=== PATIENT | female | born 1985 | race Caucasian/White ===

== ENCOUNTER → 2019-09-30 11:09 | Outpatient (CLI) | payer BC, SELFPAY ==
--- NOTE | ~2019-09-30 | US_ITS ---
EXAMINATION: US OB >= 14 weeks Fetus DATE: 09/30/2019 12:04 INDICATION: Second trimester anatomic survey TECHNIQUE: Real-time ultrasound of the pelvis was performed. COMPARISON: None. FINDINGS: There is a single living fetus in breech presentation. The placenta is anterior and 1.3 cm from the i nternal cervical os. heart rate is 158 beats per minute (bpm). cardiac activity and feta l movement are noted. The amniotic fluid index is subjectively normal. The following anatomy was identified as normal: 4 chamber heart appears normal, ventricular outflow tracts not well demonstrated 3 vessel cord cord insertion kidneys urinary bladder stomach spine diaphragm ventricles cisterna magna cerebellum The following biometric data were obtained: Biparietal diameter (BPD): 3.4 cm; head circumference (HC): 12.5 cm; abdominal circumference (AC): 10 .8 cm; femur length (FL): 2.2 cm. These measurements are concordant. Estimated weight is 168 g +/- 25 g, which correlates with the <3rd percentile when 02/27/2020 i s used as estimated date of delivery. As single measurements, these parameters are each equal to the following estimated gestational ages w ith ranges of +/- 2 standard deviations: BPD: 16 weeks 4 days ( 15 weeks 3 days - 17 weeks 5 days). HC: 16 weeks 3 days ( 15 weeks 1 days - 17 weeks 4 days). AC: 16 weeks 5 days ( 15 weeks 1 days - 18 weeks 3 days). FL: 16 weeks 6 days ( 15 weeks 3 days - 18 weeks 2 days). estimated gestational age based solely on measurements from this exam is 16 weeks 5 days +/- 1 weeks 1 days. IMPRESSION: 1. Single living fetus in variable presentation. 2. Estimated weight is 168 g +/- 25 g, which correlates with the <3rd percentile when 0 is used as estimated date of delivery. 3. Low-lying placenta. 4. Ventricular outflow tracts of the heart not well demonstrated. Reviewed, dictated and finalized at location A. IMPRESSION: 1. Single living fetus in variable presentation. 2. Estimated weight is 168 g +/- 25 g, which correlates with the <3rd per centile when 02/27/2020 is used as estimated date of delivery. 3. Low-lying placenta. 4. Ventricular outflow tracts of the heart not well demonstrated.
== END ==
PROVIDERS: PCP Family Medicine; Visit Provider Obstetrics & Gynecology
DX: Z34.92 Encounter for supervision of normal pregnancy, unspecified, second trimester (principal); O44.42 Low lying placenta NOS or without hemorrhage, second trimester
CPT/HCPCS: 76805

== ENCOUNTER → 2019-10-18 11:02 | Outpatient (CLI) | payer BC, SELFPAY ==
--- NOTE | ~2019-10-18 | US_ITS ---
US OB limited 10/18/2019 11:34 Indication: Follow-up low lying placenta. Procedure: High-resolution Limited obstetrical ultrasound Comparison: 09/30/2019 Findings: There is a single living intrauterine in breech presentation. Placenta is anterio r measuring 6.9 cm to the cervix. No evidence for previa. Amniotic fluid is subjectively normal. Feta l heart rate is 157 BPM. Limited survey demonstrates normal ventricular outflow tracts. Impression: 1: Single living intrauterine in breech presentation. 2: Anterior placenta without evidence for previa. 3: Normal ventricular outflow tracts. Reviewed, dictated and finalized at location B. Impression: 1: Single living intrauterine in breech presentation. 2: Anterior placenta without evidence for previa. 3: Normal ventricular outflow tracts.
== END ==
PROVIDERS: Visit Provider Obstetrics & Gynecology
DX: O44.10 Complete placenta previa with hemorrhage, unspecified trimester (principal); Z3A.00 Weeks of gestation of pregnancy not specified
CPT/HCPCS: 76815

== ENCOUNTER 2020-03-05 10:49 | Inpatient (IN) | payer BC, OTHER, SELFPAY ==
[2020-03-05] VITALS (89 sets, daily range): BP systolic 71–116; BP diastolic 36–94; PULSE 25–138; RESP 16; TEMP 36.4–37.2; O2SAT 77–100; BMI 30.1
[2020-03-05 12:49] LABS: Basophils Percent Auto 0.2 % (0.2-1.2); Eosinophils Absolute Auto 0.1 K/mm3 (0-0.3); Eosinophils Percent Auto 1.4 % (0-4.4); Hemoglobin 11.2 g/dL (12.0-15.0); Immature Granulocyte Absolute 0.07 K/mm3 (0.00-0.031); Immature Granulocyte Percent A 0.8 % (0-0.5); Lymphocytes Absolute Auto 1.67 K/mm3 (0.9-3.2); Mean Corpuscular Hemoglobin 30.6 pg (26-34); Mean Corpuscular Volume 87.4 fl (80-100); Mean Platelet Volume 9.8 fl (7.4-10.4); Monocytes Absolute Auto 0.6 K/mm3 (0.1-0.6); Monocytes Percent Auto 7.1 % (2.6-8.5); Neutrophils Absolute Auto 6.3 K/mm3 (1.3-6.7); Neutrophils Percent Auto 71.5 % (45.5-73.1); Platelet Count Result 178 k/mm3 (150-375); Red Blood Count 3.66 M/mm3 (4.2-5.4); Red Cell Distribution Width 12.6 % (11.5-14.5); White Blood Count 8.8 K/mm3 (4.5-10.0)
[2020-03-05] MEDS: OXYTOCIN 30 UNITS/NS 500 ML 30 UNITS/500 ML BAG IV CONT (13:00)
[2020-03-05] MEDS: LACTATED RINGERS 1,000 ML 125 ML IV CONT ×2 (13:00→15:06)
--- NOTE | 2020-03-05 13:00 | LDADM ---
This patient, Lily Jackson, was admitted to Labor/Delivery/Recovery 106 on 03/05/20 at 10:49. Plans for labor, pain management and were discussed with patient. Patient/family oriented to hospital policies and general routines including ID bracelet, bed and alarms, visiting hours, pain management, procedures, bathroom and other care routines, personal items, smoking policy, room service/diet and guest tray routines, infant security routines, and visiting hours. Patient/Family are encouraged to report perceived risks to care and to ask questions if they do not understand what they are told or what they should do. See OBIX for further documentation.
--- NOTE | 2020-03-05 13:21 | WPDOBADMIT ---
Obstetrics - Admit Note Admission Note: record reviewed. No pertinent additions to the history and/or any subsequent changes in the physical findings that are not consistent with the expected course of the were found. Additions to the history and/or subsequent changes in the physical findings follow. None.Here suspecting SROM but membranes intact. Was to have MIL in am tomorrow but decided to stay today for MIL. Cervix 3-4/50/-2 AROM with clear fluid. FHTs reactive.
--- NOTE | 2020-03-05 14:32 | WPDANESEPP ---
Anes - Eval Pre Procedure Procedure: labor epidural Date/Time: 03/05/20 14:32 Preop Diagnosis: labor pain Pre Op Diagnosis: Induction of Labor Patient Data Age: 34 Gender: F Height: 5 ft 7 in Weight: 87.3 kg Last Vital Signs Temp 36.7 C 03/05/20 14:01 Pulse 70 03/05/20 14:31 BP 113/78 03/05/20 14:31 Allergies Allergy/AdvReac Type Severity Reaction Status Date / Time No Known Allergies Allergy Verified 03/05/20 13:21 Home Medications Medication Instructions Recorded Confirmed Type PNV cmb#95-ferrous fumarate-FA 1 tablet PO DAILY 02/17/20 03/05/20 History [] ergocalciferol (vitamin D2) 1,250 mcg PO WEEKLY 02/17/20 03/05/20 History [Vitamin D2] Laboratory Tests 03/05/20 03/05/20 03/05/20 12:42 12:42 12:42 WBC 8.8 K/mm3 K/mm3 (4.5-10.0) RBC 3.66 M/mm3 L M/mm3 (4.2-5.4) Hgb 11.2 g/dL L g/dL (12.0-15.0) Hct 32.0 % L % (37.0-47.0) MCV 87.4 fl fl (80-100) MCH 30.6 pg pg (26-34) MCHC 35.0 g/dl g/dl (32-36) RDW 12.6 % % (11.5-14.5) Plt Count 178 k/mm3 k/mm3 (150-375) MPV 9.8 fl fl (7.4-10.4) Immature Gran % (Auto) 0.8 % H % (0-0.5) Neut % (Auto) 71.5 % % (45.5-73.1) Lymph % (Auto) 19.0 % % (18.3-44.2) [place] % (Auto) 7.1 % % (2.6-8.5) Eos % (Auto) 1.4 % % (0-4.4) Baso % (Auto) 0.2 % % (0.2-1.2) Lymph # (Auto) 1.67 K/mm3 K/mm3 (0.9-3.2) [place] # (Auto) 0.6 K/mm3 K/mm3 (0.1-0.6) Eos # (Auto) 0.1 K/mm3 K/mm3 (0-0.3) Baso # (Auto) 0.0 K/mm3 K/mm3 (0.0-0.1) Abs Immat Gran (auto) 0.07 K/mm3 H K/mm3 (0.00-0.031) Absolute Neuts (auto) 6.3 K/mm3 K/mm3 (1.3-6.7) Absolute Nucleated RBC 0.0 K/mm3 K/mm3 (0.0-0.012) Nucleated RBC % 0.0 % % (0.0-0.2) RPR Pending Blood Type A Positive Antibody Screen Negative Patient hx anesthesia problems: other (itching ) Family hx anesthesia problems: none PMFSH Past Medical History Medical History Calculus of kidney Family History Family History (Updated 03/05/20 @ 13:41 by Porsche Jimenez RN) Son Febrile seizures Mother Cerebrovascular accident Family history of cardiovascular disease Myocardial infarct Depression Family history of glaucoma Family history of hypercholesterolemia Family history of kidney disease Family history of malignant neoplasm of breast Grandparent Diabetes mellitus Other Carcinoma of colon Hypertension Social History Social History Smoking status: Never smoker Second hand tobacco smoke exposure: Yes ( smokes) Alcohol intake: never Substance use: never Gender identity (if verbalized by the patient): Female Spiritual care concerns: No Exam Day of Procedure 03/05/20 14:32
--- NOTE | 2020-03-05 18:16 | P.PCNOB_ITS ---
OB - Delivery Note Procedure Delivery date: 03/05/20 events: Labor Induction Intrapartal events: None Induction method: AROM and per pitocin protocol Delivery monitor: external FHT and external uterine Route of delivery: Laceration Description: Periurethral Delivery repair: vicryl (3-0) Specimen: Yes (placenta) Quantitative Blood Loss: 112 Anesthesia type: Epidural Disposition: floor [place] Baby Date of : 03/05/20 Weeks of gestation at delivery: 39 gender: Female presentation: vertex position: Right Occiput Anterior Placenta delivery description: Spontaneous cord vessel description: 3 Vessels score one minute: 9 score five minutes: 9
--- NOTE | 2020-03-05 18:17 | PM.OBDSVD ---
DS: Admitting Diagnosis Admitting Diagnosis Admitting Diagnosis: Induction of Labor IUP 39 wks DS: Discharge Diagnosis Discharge Diagnosis (1) 39 weeks gestation of : Code(s): Z3A.39 - 39 weeks gestation of Status: Acute (2) (normal spontaneous vaginal delivery): Code(s): O80 - Encounter for full-term uncomplicated delivery Status: Acute OB - DS: Summary OB Procedures : Ultrasound OB Procedures Intrapartum: Spontaneous Vag Delivery OB Procedures: : None Peripartum Data Delivery Method: Natural Vaginal Laceration Description: Periurethral complications: none Status at Discharge Functional status at discharge: independent ambulation Overall status at discharge: patient is progressing back to baseline Time Spent with Patient Time attestation: Total time spent providing and/or coordinating discharge services: DS: Data Data Completed and Pending Labs on day of discharge: Labs from last 24 hours 03/05/20 03/05/20 03/05/20 12:42 12:42 12:42 WBC 8.8 RBC 3.66 L Hgb 11.2 L Hct 32.0 L MCV 87.4 MCH 30.6 MCHC 35.0 RDW 12.6 Plt Count 178 MPV 9.8 Immature Gran % (Auto) 0.8 H Neut % (Auto) 71.5 Lymph % (Auto) 19.0 [place] % (Auto) 7.1 Eos % (Auto) 1.4 Baso % (Auto) 0.2 Lymph # (Auto) 1.67 [place] # (Auto) 0.6 Eos # (Auto) 0.1 Baso # (Auto) 0.0 Abs Immat Gran (auto) 0.07 H Absolute Neuts (auto) 6.3 Absolute Nucleated RBC 0.0 Nucleated RBC % 0.0 RPR Pending Blood Type A Positive Antibody Screen Negative Discharge Plan Discharge Attending physician on discharge: Khalida Layne Discharging Clinician: Khalida Layne Anticipated Discharge Date/Time: 03/07/20 07:18 Patient Disposition: Home, Self-Care Activity: may shower and pelvic rest Diet: regular Patient Instructions: Antibiotic Form Stand Alone Forms: General Discharge Information Follow-up/Referrals: Khalida Layne MD [Physician] - 6 Weeks Discharge Medications: New norethindrone (contraceptive) 0.35 mg tablet 0.35 mg PO DAILY Qty: 84 RF: 3 Continued ergocalciferol (vitamin D2) [Vitamin D2] 1,250 mcg (50,000 unit) Capsule 1,250 mcg PO WEEKLY RF: 0 PNV cmb#95-ferrous fumarate-FA [] 28 mg iron- 800 mcg Tablet 1 tablet PO DAILY RF: 0 Date of admission: 03/05/20 10:49 Primary Care Provider: Rico Choi Admitting Provider: Benjamin Freeman Attending physician on admission: Benjamin Freeman Condition: Stable
[2020-03-05] MEDS: OXYTOCIN 30 UNITS/NS 500 ML 30 UNITS/500 ML BAG 125 UNITS IV CONT (18:29)
[2020-03-05] MEDS: WITCH HAZEL 40 PADS 1 PAD TOPICAL (20:24)
[2020-03-05] MEDS: BENZOCAINE 20% AER SPR (*SP) 56 GM CAN 1 SPRAY TOPICAL (20:24)
--- NOTE | 2020-03-05 20:35 | OBPPTRN ---
Patient transferred to post room #283 via wheelchair with in bassinet. Support person present. Oriented to unit, room, information board, rooming in, admission packet and security measures. Patient verbalizes understanding.
[2020-03-05 22:14] LABS: Rapid Plasma Reagin Non-Reactive (NonReactive)
[2020-03-06] MEDS: ACETAMINOPHEN 325 MG TABLET 650 MG PO ×2 (02:54→15:43)
[2020-03-06] MEDS: IBUPROFEN 600 MG TABLET PO ×2 (02:54→12:19)
[2020-03-06 04:53] LABS: Hematocrit 31.3 % (37.0-47.0); Hemoglobin 10.8 g/dL (12.0-15.0)
[2020-03-06 08:00] VITALS: BP 122/83; PULSE 62; RESP 18; TEMP 36.6
[2020-03-06] MEDS: DOCUSATE SODIUM 100 MG CAPSULE PO ×2 (08:13→15:43)
[2020-03-06] MEDS: MULTIVIT/MIN/PREN/FOL AC/IRON TABLET 1 TAB PO (08:13)
--- NOTE | 2020-03-06 08:24 | P.PNOB_ITS ---
OB - PN: Subj Subjective Date/time seen: 03/06/20 08:24 Patient comments: no complaints and pain well controlled baby status: doing well and nursing well OB - PN: Obj Data Labs CBC & Chem 7: 03/06/20 04:18 Labs: Laboratory Results - last 24 hr 03/05/20 03/05/20 03/05/20 12:42 12:42 12:42 WBC 8.8 RBC 3.66 L Hgb 11.2 L Hct 32.0 L MCV 87.4 MCH 30.6 MCHC 35.0 RDW 12.6 Plt Count 178 MPV 9.8 Immature Gran % (Auto) 0.8 H Neut % (Auto) 71.5 Lymph % (Auto) 19.0 [place] % (Auto) 7.1 Eos % (Auto) 1.4 Baso % (Auto) 0.2 Lymph # (Auto) 1.67 [place] # (Auto) 0.6 Eos # (Auto) 0.1 Baso # (Auto) 0.0 Abs Immat Gran (auto) 0.07 H Absolute Neuts (auto) 6.3 Absolute Nucleated RBC 0.0 Nucleated RBC % 0.0 RPR Non-reactive Blood Type A Positive Antibody Screen Negative 03/06/20 04:18 WBC RBC Hgb 10.8 L Hct 31.3 L MCV MCH MCHC RDW Plt Count MPV Immature Gran % (Auto) Neut % (Auto) Lymph % (Auto) [place] % (Auto) Eos % (Auto) Baso % (Auto) Lymph # (Auto) [place] # (Auto) Eos # (Auto) Baso # (Auto) Abs Immat Gran (auto) Absolute Neuts (auto) Absolute Nucleated RBC Nucleated RBC % RPR Blood Type Antibody Screen OB - PN A/P Plan day: 1 Plan: routine care, discharge home, follow up 6 weeks and other (oc's for bc) Time Spent With Patient Time: Total time spent is greater than 50% in coordination of care (as documented) at patient's floor/unit and/or counseling patient: Exam : Bimanual exam- vagina & uterus: other (Uterus firm, nt @U)
--- NOTE | 2020-03-06 11:00 | WPDANLDPN2 ---
Anes-Prog Note L&D Date/Time: 03/06/20 11:00 Comfortable throughout: labor and delivery Neuraxial method: epidural Epidural/Spinal procedure site: clean & non-tender Neuro status: Neuro function grossly intact. Cardiovascular status: normal Respiratory status: normal Airway patency: baseline Mental status: baseline Post-Op hydration status: normal Vital Signs: Last Vital Signs Temp 36.6 C 03/06/20 08:00 Pulse 62 03/06/20 08:00 Resp 18 03/06/20 08:00 BP 122/83 03/06/20 08:00 Pulse Ox 77 L 03/05/20 18:20 Pain score (VAS): 0 I/O: Intake & Output 03/05/20 03/06/20 03/06/20 23:59 07:59 15:59 Intake Total 500 Balance 500 Post-procedural complaints: none Patient feedback: Patient satisfied with anesthetic care.
[2020-03-06] MEDS: WITCH HAZEL 40 PADS 1 PAD TOPICAL (12:18)
[2020-03-06] MEDS: BENZOCAINE 20% AER SPR (*SP) 56 GM CAN 1 SPRAY TOPICAL (12:19)
--- NOTE | 2020-03-06 18:16 | PC.NURSE ---
Self care and infant care discharge instructions given including follow up visit date and time. Mother verbalized understanding. No questions or concerns voiced.
[2020-03-08 09:34] VITALS: BP 109/68; PULSE 92; RESP 20; TEMP 36.6; O2SAT 98
== END 2020-03-06 18:47 | disposition home or self-care (01) | DRG 807 ==
LOC: ANHLDR 03-08 09:19 → ANHOB2 03-08 09:19
PROVIDERS: Admitting Provider Obstetrics & Gynecology Gynecology; PCP Family Medicine; Visit Provider Obstetrics & Gynecology Gynecology
DX: O71.82 Other specified trauma to perineum and vulva (principal); Z37.0 Single live birth; Z3A.39 39 weeks gestation of pregnancy; Z86.19 Personal history of other infectious and parasitic diseases
CPT/HCPCS: 36415; 84112; 85014; 85018; 85025; 86592; 86850; 86900; 86901; 88307; A9270; J2590; J2795; J7120

== ENCOUNTER 2020-04-06 13:54 | Outpatient (RCR) | payer BC, OTHER, SELFPAY ==
--- NOTE | 2020-04-06 14:11 | PC.NURSE ---
IN 1300 OUT 1400 HISTORY: Pt. delivered at [facility] at 39/2 weeks. had no complications after delivery. Mother had no complications after delivery. Infant is now 4 weeks & 4 days old. Infant appears to be well cared for. Infant has been seen by ICP as scheduled. last seen by ICP on 03/17/2020. Has appt scheduled next on 04-14-2020. Mother reports: She would like to have the latch checked and would like to check the 's weight. Mother wishes: That the infant is gaining weight appropriately. Currently at 9-12 wets per day and 9-12 yellow seedy stools per day. weight: 7-6 lowest weight: 6-7 Last Weight: 7-6 (03-17-2020) Pre feeding weight: 3749 Post feeding weight: 3827 OBSERVATION: Mom puts baby to breast in cross cradle position. Independently latches to right breast with slightly shallow latch. Mom assisted to get a deeper latch. Mom states she does not have any pain but does feel the difference in the deeper latch. Mom burps baby and then then attaches infant to left breast with deep latch. Infant nurses eagerly on both breasts with frequent swallowing noted. Mom's nipples remain the same shape after feeding and she reports no pain. has large yellow seedy stool post feeding. PLAN: Mother will continue putting to breast every 2-3 hours or as often as desires. Mom will work to obtain deep latch when infant is on the breast. Mom will have next weight check at her appt next week. Mother will call with further questions or concerns.
== END 2020-05-18 08:31 | disposition home or self-care (01) ==
LOC: ANHOBOP 13:54
PROVIDERS: PCP Family Medicine; Visit Provider Pediatrics
DX: Z46.1 Encounter for fitting and adjustment of hearing aid (principal)
CPT/HCPCS: 99212; G0463

== ENCOUNTER 2020-04-14 08:41 | Outpatient (CLI) | payer OTHER, SELFPAY ==
--- NOTE | ~2020-04-14 | MR_ITS ---
EXAMINATION: MR ankle RT wo con DATE: 04/14/2020 09:51 INDICATION: Strain of muscle and tendon of peroneal muscle. Lateral posterior ankle pain for one year . TECHNIQUE: Magnetic resonance imaging (MRI) of the right ankle was performed without intravenous cont rast. Sequences included sagittal PD-weighted FS FSE, sagittal PD-weighted FSE, coronal PD-weighted F S FSE, coronal PD-weighted FSE, axial PD-weighted FS FSE, and axial PD-weighted FSE. COMPARISON: Right ankle radiographs 04/11/2020 FINDINGS: Medial ankle ligaments: There are changes of prior sprain of superficial component of the deltoid ligament characterized incr eased signal intensity. Deep component of the deltoid ligament is normal. Lateral ankle ligaments: There is an old ununited avulsion fracture of the inferior tip of the fibula. There are changes of pr ior sprains of anterior talofibular ligament and calcaneofibular ligament characterized increased sig nal intensity. There are changes of prior sprain of posterior talofibular ligament where there are so me disorganized fibers. The anterior and posterior tibiofibular ligaments are intact. Tendons: The anterior and medial ankle tendons are normal. Achilles tendon is normal. Peroneus longus tendon i s normal. There is a longitudinal split tear of peroneus brevis tendon. There is subcutaneous edema s uperficial to the peroneal tendons at the lateral malleolus. Plantar fascia: Normal. Bones/other: Bone alignment is normal. No acute fracture. The talar dome is normal. Fluid: There are small ankle and subtalar joint effusions. IMPRESSION: 1. 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 2. Changes of lateral ankle sprain. 3. Longitudinal split tear of peroneus brevis tendon. Reviewed, dictated and finalized at location A. RENCE INVESTIGATOR
== END 2020-04-14 08:42 | disposition home or self-care (01) ==
LOC: ANHIMG 08:43
PROVIDERS: PCP Family Medicine; Visit Provider Orthopaedic Surgery
DX: S86.311A Strain of muscle(s) and tendon(s) of peroneal muscle group at lower leg level, right leg, initial encounter (principal); S82.831K Other fracture of upper and lower end of right fibula, subsequent encounter for closed fracture with nonunion; S93.401A Sprain of unspecified ligament of right ankle, initial encounter; S96.811A Strain of other specified muscles and tendons at ankle and foot level, right foot, initial encounter
CPT/HCPCS: 73721

== ENCOUNTER 2021-12-03 14:50 | Outpatient (CLI) | payer BC, MEDICAID, SELFPAY ==
--- NOTE | ~2021-12-03 | US_ITS ---
EXAMINATION: US breast RT limited HISTORY: Palpable lump at the 12:00 location of the right breast near the nipple TECHNIQUE: Targeted right breast ultrasound was performed. FINDINGS: There is a 7 mm x 4 mm oval, circumscribed, parallel, hypoechoic mass with posterior acoust ic enhancement and no internal vascularity in the skin of the right breast at the nipple at the 12:00 location corresponding to the palpable abnormality of concern. Some some images appear to demonstrat e a tract to the skin surface. IMPRESSION: Findings consistent with a sebaceous cyst of the right breast corresponding to palpable abnormalities concern. Clinical follow-up is recommended. BI-RADS Category 2: Benign finding(s). Reviewed, dictated and finalized at location A.
== END 2021-12-03 14:51 | disposition home or self-care (01) ==
LOC: ANHIMG 15:00
PROVIDERS: PCP Family Medicine; Visit Provider Obstetrics & Gynecology Gynecology
DX: N63.10 Unspecified lump in the right breast, unspecified quadrant (principal)
CPT/HCPCS: 76642

== ENCOUNTER → 2021-12-31 15:34 | Outpatient (CLI) | payer BC, MEDICAID, SELFPAY ==
--- NOTE | ~2021-12-31 | MR_ITS ---
EXAMINATION: MR ankle RT wo con DATE: 12/31/2021 16:09 INDICATION: Right ankle pain TECHNIQUE: Magnetic resonance imaging (MRI) of the right ankle was performed without intravenous cont rast. Sequences included sagittal, coronal, and axial proton-density weighted fast spin echo without and with fat saturation. COMPARISON: None. FINDINGS: Bones/other: Chronic nonunited avulsion fracture fragment with corticated margins and without marrow edema at the distal tip of the lateral malleolus. The nondisplaced fragment includes the footplate of the calcaneo fibular ligament and portions of the anterior talofibular and talofibular ligaments. Bone marrow sign al is normal. Small ossicle along the posterior talus involving the footplate of the posterior talofi bular ligament which could represent either a developmentally unfused os trigonum or a chronic nonuni marybel avulsion fracture of the lateral tubercle of the posterior process of the talus. There is minimal associated marrow edema involving both the ossicle in the adjacent talus. No other fractures or path ologic marrow replacing process. Joint spaces appear relatively preserved with no focal cartilage def ects appreciated. Medial ankle ligaments: Deep and superficial deltoid ligaments as well as the spring ligament are normal. Lateral ankle ligaments: The anterior and posterior inferior tibiofibular ligaments are normal. The anterior talofibular and c alcaneofibular ligaments are normal. There is a tiny ganglion cyst along a longitudinal split tear at the fibular side of the posterior talofibular ligament situated between the portion of the ligament attachment both sides of the avulsion fracture. Tendons: Achilles tendon is normal. . Small amount of fluid signal surrounding the normal peroneus longus and brevis tendons consistent with mild tenosynovitis. The tibialis anterior and extensor hallucis longus and extensor digitorum longus tendons are normal. The tibialis posterior, flexor digitorum longus an d flexor hallucis longus tendons are normal. Plantar fascia: The plantar aponeurosis is normal. Fluid/other: Physiologic amount fluid in the joint spaces. 3 small loose osteochondral bodies, the largest measuri ng 6 mm in maximal diameter within a small ganglion cyst at the posterior medial aspect of the ankle situated between along the posterior margin of the tibial plafond between the flexor hallucis longus and flexor digitorum longus tendons. There is an additional small ganglion posterior to the ankle whi ch appears to arise more lateral to the flexor hallux longus tendon. Lisfranc ligament complex is nor mal. Mild subcutaneous edema along the posterior margin of the lateral malleolus. IMPRESSION: 1. 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 2. A couple small ganglion cyst posterior to the ankle as well as mild edema associated with a small os trigonum versus chronic nonunited fracture of the lateral tubercle of the posterior process of the talus to which is attached the tibial side of the calcaneofibular ligament. Constellation of finding s can be seen with posterior ankle impingement. Reviewed, dictated and finalized at location A. IMPRESSION: 1. 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 2. A couple small ganglion cyst posterior to the ankle as well as mild edema as sociated with a small os trigonum versus chronic nonunited fracture of the late ral tubercle of the posterior process of the talus to which is attached the tib ial side of the calcaneofibular ligament. Constellation of findings can be seen with posterior ankle impingement.
== END ==
PROVIDERS: PCP Family Medicine; Visit Provider Orthopaedic Surgery
DX: S86.311A Strain of muscle(s) and tendon(s) of peroneal muscle group at lower leg level, right leg, initial encounter (principal); M24.071 Loose body in right ankle; S82.64XA Nondisplaced fracture of lateral malleolus of right fibula, initial encounter for closed fracture; M67.471 Ganglion, right ankle and foot
CPT/HCPCS: 73721

== ENCOUNTER 2022-02-14 00:20 | Day surgery (SDC) | payer BC, MEDICAID, SELFPAY ==
[2022-02-08 17:44] VITALS: BMI 23.1
--- NOTE | 2022-02-08 17:49 | PC.NURSE ---
Report to the Outpatient Waiting Room, entrance under the green pavilion located off [facility], at time _0830_ on date _[id number]_. Planned Procedure Time: _1030_. Time changes happen often and if your time is changed the preop area will call you the afternoon before. - You and your visitor will be asked to self-screen and do not enter if you have any COVID symptoms. - We encourage only one visitor and NO visitors under age 16 are allowed at this time. Your visitor will receive communication by the phone number that is given day of service. - The patient visitor is requested to social distance or may leave the building when not with patient due to restrictions. - A mask is required within the hospital. Patients may have clear liquids (water, carbonated beverages, clear teas, apple juice) until 3 hours prior to surgery with a maximum of 20 ounces. - No food from midnight until time of surgery Take the following medications with a SIP of water the morning of surgery: ___None Medications to discontinue per physician None Date to take last dose Please no make-up, nail croatian, hairspray, perfume, deodorant, or body powder the day of surgery. No jewelry (including any body piercings) or valuables the day of surgery, leave them at home. Please take a shower or bath the night before, or the morning of, surgery with an antibacterial soap. Wear comfortable, loose fitting clothing. - Jewelry must be removed prior to entering the operating room. Rings and piercings that are not removed may be cut off. - The hospital will not accept responsibility for valuables. - Please leave all valuables, including medications, at home the day of surgery. If you are going home after surgery, a licensed combine driver must drive you home. - NO public transportation without another adult. - We recommend that an adult stay with you for 24 hours following discharge. - We also recommend that you do not drive, make important decision, drink alcoholic beverages, or take any drugs that were not prescribed by your health care provider for at least 24 hours after your discharge time. Follow any additional instructions given to you from your surgeon. If you or anyone in your household have experienced Covid symptoms in the past week, please notify your surgeon or the nurse liaison at the phone number below for possible testing. Telephone instructions given to __Patient____and asked if any additional questions and then verbalized understanding. Patient advised to call surgeon office or pre surgery nurse liaison [phone] if any additional questions.
[2022-02-14] VITALS (8 sets, daily range): BP systolic 92–121; BP diastolic 53–74; PULSE 55–85; RESP 16–20; TEMP 36.2–36.6; O2SAT 98–100
--- NOTE | 2022-02-14 07:07 | WPDHPUPDATE1 ---
History and Physical Update Update Date/Time: 02/14/22 07:07 History and Physical has been reviewed, including an updated exam of the patient. There are NO changes in the patient's condition. Risks, benefits, and alternatives have been discussed and questions answered. Patient agrees to proceed with procedure.
[2022-02-14] MEDS: ACETAMINOPHEN 500 MG TABLET 1000 MG PO (09:10)
--- NOTE | 2022-02-14 09:14 | WPDANESEPPF ---
Anes - Initial Pre Proc Eval Procedure: Operation Date: 02/14/22 10:30 Proposed Procedures p Right Ankle Arthroscopic Lateral Ligament Reconstruction - Jewel Francisco MD Date/Time: 02/14/22 09:14 Surgeon: Jewel Francisco MD Pre Op Diagnosis: Rt Ankle Unstability Patient Data Age: 36 Gender: F Height: 1.7 m Weight: 66.8 kg Allergies Allergy/AdvReac Type Severity Reaction Status Date / Time No Known Allergies Allergy Verified 02/14/22 08:54 Home Medications Medication Instructions Recorded Confirmed Type hydrocodone 7.5 mg-acetaminophen 1 tablet PO Q6H PRN pain #30 tabs 02/14/22 Rx 325 mg tablet ibuprofen 800 mg tablet 800 mg PO TID PRN pain #30 tabs 02/14/22 Rx ondansetron 8 mg disintegrating 8 mg PO Q8H PRN nausea and 02/14/22 Rx tablet vomiting #10 tabs sennosides 8.6 mg-docusate sodium 1 tab-cap PO BID PRN constipation 02/14/22 Rx 50 mg tablet (Senna with Docusate #20 tabs Sodium) Patient hx anesthesia problems: none Family hx anesthesia problems: none Results Review: All pre-operative results and documents have been reviewed as part of the pre-operative evaluation. FORMERLY [facility] Past Medical History Medical History Calculus of kidney Peroneal tendon rupture Right ankle instability Rupture of ligament of ankle Family History Family History Son Febrile seizures Mother Cerebrovascular accident Family history of cardiovascular disease Myocardial infarct Depression Family history of glaucoma Family history of hypercholesterolemia Family history of kidney disease Family history of malignant neoplasm of breast Grandparent Diabetes mellitus Other Carcinoma of colon Hypertension Social History Social History Smoking status: Never smoker Second hand tobacco smoke exposure: Yes ( smokes) Alcohol intake: current Substance use: never Living arrangements: with family Gender identity (if verbalized by the patient): Female Spiritual care concerns: No Anes - Eval Final PreProcedure Day of Procedure 02/14/22 09:14 Patient weight: normal Heart: regular rate and rhythm Lungs: clear to auscultation Airway: Mallampati scale class II Neurological: alert and oriented Last oral intake: >/= 8 hours ASA classification: II Emergent: no Anesthetic plan: proceed Anesthesia type and monitoring: general LMA and standard monitoring Results Review: All pre-operative results and documents have been reviewed as part of the pre-operative evaluation. Informed Consent: The patient's anesthetic plan and its attendant risks and benefits were discussed with the patient/family/POA. Questions were solicited and answers provided to the satisfaction of the patient/family/POA.
[2022-02-14] MEDS: LACTATED RINGERS 1,000 ML 30 ML IV CONT ×2 (09:20→12:41)
[2022-02-14] MEDS: KETOROLAC 15 MG/ML VIAL (*BKC) IV PUSH (10:09)
[2022-02-14] MEDS: ceFAZolin 2 GM/D5W 50 ML 2 GM/50 ML BAG IVPB (10:25)
[2022-02-14] MEDS: BUPIVACAINE HCL 0.5% PF 30 ML VIAL INFILTRATE (12:22)
--- NOTE | 2022-02-14 12:54 | W.PM.PROC2 ---
Procedure Note - Detailed Date of Procedure 02/14/22 Pre-op Diagnosis Rt Ankle Unstability Post-op Diagnosis Same Procedure Performed Right ankle lateral ligament reconstruction, peroneal tendon reconstruction. Surgeon Jewel Francisco MD Joint Filler home care assistant Anesthesia General Indications 36-year-old woman with previous right ankle injury. Now with instability demonstrated stress views. 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 Patient presents for operative treatment. 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 Description of Procedure Patient identified in the preoperative holding. Informed consent given. Operative extremity marked. Patient received intravenous antibiotics. Patient brought to the operating room where she underwent general anesthetic by anesthesia team. Positioned supine on operating room table. Time-out performed confirming the patient, site of the surgery and the plan. right lower extremity prepped draped usual sterile surgical fashion using a ChloraPrep skin solution. Foot and ankle exsanguinated and a thigh tourniquet inflated to 250 mmHg. Curvilinear incision over the lateral distal fibula. Incision made with 15 blade knife. Hemostasis controlled electrocautery. Dissection carried down to the fascia which was incised in line with skin incision. Careful dissection to isolate the nerve elements and protect these during the case. Anterior talofibular and calcaneofibular ligaments identified. These were noted to be unstable as the CF ligament was attached to distal fibula avulsion fragment. Bone fragment was too small to be repaired was excised. Connection of the posterior ligament to the talus was also attached and preserved. Ligaments were then sharply elevated off of the distal fibula. Distal fibula prepared with a rongeur. Rongeur used to remove a small bone spur from the anterolateral talus. Thorough irrigation of the ankle joint and distal fibula. Visualized portion of the ankle joint noted to be intact. Repair of the ligament then performed. Fiber tack suture anchors placed in the distal fibula passed through the anterior talofibular and calcaneal fibular ligament and directly repaired. Retention suture placed with fiber tack anchor in talar neck passed through bone fibula to act as a check rein. Extensor retinaculum then used to augment the anterior talofibular ligament. This was bluntly freed up from surrounding tissue brought over to the fibula and repaired with 0 Vicryl suture. Peroneal tendons then Addressed. The superior peroneal retinaculum was incised the peroneal tendons were inspected. Peroneus longus to be intact. Longitudinal tear of the peroneus brevis noted with approximately 60% of the tendon remaining. The torn portion was then removed. This had a muscle attachment from proximally that was also removed to allow room in the peroneal groove. Surrounding synovitis sharply excised. Wound thoroughly irrigated. Retinaculum repaired 3-0 Monocryl interrupted suture. Fascia repaired with 2 0 Vicryl suture, subcutaneous tissue repaired with 3 0 Monocryl interrupted and running subcuticular stitch. Sterile dressing placed. Tourniquet released. Bulky dressing and splint applied. Patient awoken from anesthesia, extubated and taken to the recover room in stable condition. All sponge needle and instrument counts correct at the end of the case. Implants suture anchor Estimated Blood Loss -2.0 Tourniquet Time 86 Drains No Packing No Pathology None sent Complications None Condition Stable Disposition PACU
== END 2022-02-14 14:17 | disposition home or self-care (01) ==
PROVIDERS: PCP Family Medicine; Visit Provider Orthopaedic Surgery
PROC: (CPT 27698; principal; 2022-02-14 10:30)
DX: M25.371 Other instability, right ankle (principal); S86.311D Strain of muscle(s) and tendon(s) of peroneal muscle group at lower leg level, right leg, subsequent encounter; S93.491D Sprain of other ligament of right ankle, subsequent encounter; S82.831K Other fracture of upper and lower end of right fibula, subsequent encounter for closed fracture with nonunion; X58.XXXD Exposure to other specified factors, subsequent encounter
CPT/HCPCS: 27698; 27659; A9270; C1713; J0690; J1100; J1885; J2250; J2370; J2405; J2704; J3010; J7120

== ENCOUNTER → 2022-05-03 15:50 | Outpatient (CLI) | payer BC, MEDICAID, SELFPAY ==
--- NOTE | ~2022-05-03 | US_ITS ---
EXAMINATION: US OB <= 14 weeks fetus DATE: 05/03/2022 16:27 INDICATION: Establish viability and dating of during first trimester TECHNIQUE: Real-time pelvic ultrasound utilizing both a transvaginal and transabdominal probe was pe rformed. The interpreting radiologist was not present for the study. COMPARISON: None. FINDINGS: The uterus measures 14.3 x 8.4 x 10.6 cm. There are 2 separate intrauterine gestational sacs which ap pear to be by a nearly indiscernible thin membrane consistent with a diamniotic monochorion ic . A yolk sac and pole are identified in each gestational sac. The crown rump length for fetus A in the sac positioned on the left measures 4.0 cm, which correlates with an estimated gestational age of 10 weeks and 6 days. heart motion is identified measuring 165 beats per minute (bpm) by M-mode Doppler. The crown rump length for fetus B in the sac positioned in the right measures 3.8 cm, which correlate s with an estimated gestational age of 10 weeks and 5 days. heart motion is identified measurin g 174 beats per minute (bpm) by M-mode Doppler. The right ovary is not visualized. The left ovary measures 4.6 x 2.7 x 3.2 cm. 1.5 cm anechoic likely corpus luteum cyst in the left ovary. There is no free fluid in the pelvis. IMPRESSION: 1. Monochorionic, diamnionic with 2 living fetuses. 2. Gestational age by ultrasound of 10 weeks 6 day(s) +/- 7 day(s) with ultrasound estimated date of delivery ([facility]KE) of 11/23/2022. Reviewed, dictated and finalized at location B. COMMUNICATIONS OFFICER IMPRESSION: 1. Monochorionic, diamnionic with 2 living fetuses. 2. Gestational age by ultrasound of 10 weeks 6 day(s) +/- 7 day(s) with ultras ound estimated date of delivery (MIKE) of 11/23/2022.
== END ==
PROVIDERS: PCP Advanced Practice Midwife; Visit Provider Advanced Practice Midwife
DX: O30.031 Twin pregnancy, monochorionic/diamniotic, first trimester (principal); Z3A.10 10 weeks gestation of pregnancy
CPT/HCPCS: 76801; 76802

== ENCOUNTER 2023-10-20 07:18 | Outpatient (CLI) | payer BC, MEDICAID, SELFPAY ==
--- NOTE | ~2023-10-20 | MR_ITS ---
MRI of the right ankle Clinical history: Strain Technique: Coronal proton-density and proton-density fat-sat images, axial proton-density and proton- density fat-sat images, and sagittal proton-density and proton-density fat-sat images were acquired. COMPARISON: 12/31/2021 Findings: Syndesmotic ligaments are intact. Anterior and posterior talofibular ligaments, and calcane ofibular ligament are intact. Focal susceptibility artifact about the lateral malleolus suggests post operative change. Deltoid ligament is intact. Medial flexor tendons, peroneal tendons, anterior extensor tendons, and Achilles tendon are intact. There is no osteochondral lesion of the talar dome. There is amorphous marrow edema in the cuboid, wh ich could reflect contusion or reactive marrow edema due to degenerative change at the fourth and fif th tarsometatarsal joints. Remaining joint spaces are relatively well-preserved. No significant joint effusion evident. Plantar fascia intact. No soft tissue mass identified. There is a small fluid collection superficiall y, just superficial to the lateral malleolus measuring 1 cm in maximum diameter. Impression: Probable interval postoperative change at the lateral malleolus with focal susceptibility artifact. C orrelate with precise surgical history. No ligamentous tear seen currently. 1 cm fluid collection superficial to the lateral malleolus, similar to prior exam. Consider seroma or adventitial bursa formation. Amorphous marrow edema of the cuboid, which could reflect contusion or reactive marrow edema due to d egenerative change at the fourth and fifth tarsometatarsal joints. Reviewed, dictated and finalized at location . Impression: Probable interval postoperative change at the lateral malleolus with focal susc eptibility artifact. Correlate with precise surgical history. No ligamentous te ar seen currently. 1 cm fluid collection superficial to the lateral malleolus, similar to prior ex am. Consider seroma or adventitial bursa formation. Amorphous marrow edema of the cuboid, which could reflect contusion or reactive marrow edema due to degenerative change at the fourth and fifth tarsometatarsa l joints.
== END 2023-10-20 07:19 ==
LOC: MICIMG 07:18
PROVIDERS: PCP Family Medicine; Visit Provider Orthopaedic Surgery
DX: S86.311A Strain of muscle(s) and tendon(s) of peroneal muscle group at lower leg level, right leg, initial encounter (principal); M79.89 Other specified soft tissue disorders
CPT/HCPCS: 73721